=== PATIENT | male | born 1960 | race Two or more races ===

== ENCOUNTER 2017-08-30 12:36 | Observation (INO) | payer SELFPAY ==
[~2017-08-30] VITALS: Ht 167.6 cm; Wt 102.1 kg
[~2017-08-30 12:36] MED LIST: ASPIRIN500 MG PO; ATORVASTATIN CA20 MG PO; DIOVAN160 MG PO; FAMOTIDINE20 MG PO; FUROSEMIDE20 MG PO; ISOSORBIDE MONO30 M1 PO; METOPROLOL TART25 MG PO; PLAVIX75 MG PO; POTASSIUM CHLOR8 ME1 PO
[2017-08-30] MEDS ORDERED: HYDROMORPHONE 1MG/1ML INJ IV STA (12:44)
[2017-08-30] MEDS ORDERED: ONDANSETRON HCL INJ 2 MG/ML VIAL IV STA (12:44)
[2017-08-30] MEDS ORDERED: PLAVIX75 MG PO (13:31)
[2017-08-30] MEDS ORDERED: NITROGLYCERIN0.4 MG SL (13:31)
[2017-08-30] MEDS ORDERED: ASPIRIN325 MG PO (13:34)
[2017-08-30 13:35] LABS: BASOPHILS # (AUTO) 0.1 (0.0-0.1); BASOPHILS % 0.5 % (0.0-1.0); EOSINOPHILS % 0.3 % (0.0-6.0); HEMATOCRIT 46.1 % (38.2-49.6); HEMOGLOBIN 15.3 g/dL (14.0-18.0); LYMPHOCYTES # (AUTO) 1.2 (1.0-3.2); LYMPHOCYTES % 11.9 % (18.0-39.1); MEAN CORPUSCULAR HEMOGLOBIN 28.5 pg (28-32); MEAN CORPUSCULAR HGB CONC 33.2 g/dL (31-35); MONOCYTES # (AUTO) 0.6 (0.2-0.8); MONOCYTES % 5.6 % (4.4-11.3); NEUTROPHILS # (AUTO) 8.4 (2.1-6.9); NEUTROPHILS % 81.3 % (38.7-80.0); PLATELET COUNT 216 x10e3/uL (140-360); RED BLOOD COUNT 5.36 x10e6/uL (4.3-5.7); RED CELL DISTRIBUTION WIDTH 13.9 % (11.7-14.4)
--- NOTE | 2017-08-30 13:43 | Diagnostic Imaging Report ---
PROCEDURE: CHEST SINGLE (PORTABLE) COMPARISON: 09/10/2010. INDICATIONS: CHEST PAIN, SOB FINDINGS: The lungs are well-inflated. No focal consolidation, pleural effusion, or pneumothorax. Postsurgical changes of the mediastinum with borderline enlargement of the cardiac silhouette. No overt pulmonary edema. No acute osseous abnormality. CONCLUSION: Borderline cardiomegaly without vascular decompensation. Dictated by: Jose Miguel Chao M.D. on 08/30/2017 at 13:51 Electronically approved by: Jose Miguel Chao M.D. on 08/30/2017 at 13:51
[2017-08-30 13:51] LABS: INR 0.96; PARTIAL THROMBOPLASTIN TIME 28.3 seconds (23.8-35.5); PROTHROMBIN TIME 13.3 seconds (11.9-14.5)
[2017-08-30 13:58] LABS: ALANINE AMINOTRANSFERASE 26 IU/L (0-55); ALBUMIN/GLOBULIN RATIO 0.9 (0.8-2.0); ALKALINE PHOSPHATASE 73 IU/L (40-150); AMYLASE 42 U/L (25-125); ANION GAP 14.5 mmol/L (8-16); BLOOD UREA NITROGEN 13 mg/dL (7-26); BUN/CREATININE RATIO 13 (6-25); CALCIUM 9.3 mg/dL (8.4-10.2); CARBON DIOXIDE 25 mmol/L (22-29); CHLORIDE 105 mmol/L (98-107); CREATINE KINASE 67 IU/L (30-200); CREATININE, SERUM 0.99 mg/dL (0.72-1.25); EST GLOMERULAR FILTRATION RATE > 60 ML/MIN (60-); GLUCOSE 136 mg/dL (74-118); LIPASE 11 U/L (8-78); POTASSIUM 4.5 mmol/L (3.5-5.1); SODIUM 140 mmol/L (136-145)
[2017-08-30 14:05] LABS: TROPONIN I 0.172 ng/mL (0-0.300)
[2017-08-30] MEDS ORDERED: NITROGLYCERIN 2% OINT 1 GM PKT TOP ONE ×2 (14:15→17:45)
[2017-08-30] MEDS ORDERED: MORPHINE SULFATE 2 MG/ML SYR IV PRN (14:45)
[2017-08-30] MEDS ORDERED: SODIUM CHLORIDE FLUSH 10 ML SYR INJ PRN (14:45)
[2017-08-30] MEDS ORDERED: ONDANSETRON HCL INJ 2 MG/ML VIAL IV PRN (14:45)
[2017-08-30] MEDS ORDERED: PROPRANOLOL HCL 1 MG/ML VIAL INJ ONE ×2 (16:00→17:15)
[2017-08-30] MEDS ORDERED: NITROGLYCERIN 0.4 MG SUBL SL PRN (17:45)
[2017-08-30] MEDS: VALSARTAN 160 MG TAB PO SCH (18:06)
--- NOTE | 2017-08-30 18:31 | History and Physical ---
CLINICAL HISTORY: This is a 57-year-old Cristhian [place] Slov[place] gentleman seen in the emergency room at [facility] because of severe chest pains lasting for hours on and off since 10 p.m. yesterday. This patient is known to have severe coronary artery disease status post coronary artery bypass surgery followed by multiple coronary stents. He is known to have severe cardiomyopathy, ejection fraction in the range of 15%. We have discussed defibrillator implantation, but he has not agreed to it. He was last stented in September of this year when the circumflex stent was inserted, jailing the obtuse marginal artery. He is known to have 2 occluded vein grafts and a 3rd vein graft with 78% stenosis, but this vein graft supplied a small right coronary artery measuring 1.5 cm. Additionally, he has a patent internal mammary to the LAD, but in the distal portion of the LAD, the vessel was 2 mm and had a 60% to 70% stenosis. Heart transplant to be considered. PAST MEDICAL HISTORY: Is remarkable for the above conditions. He has had a previous myocardial infarction involving the circumflex coronary artery. There is history of hypertension, hiatal hernia, chronic right bundle branch block, left anterior hemiblock. There are also positional chest pains and pains radiating to the back. Past surgery included bypass surgery times 3 in 2004 with vein graft to the ramus artery and 2nd obtuse marginal artery, appendectomy, lumbar fusion, ganglion cyst. FAMILY HISTORY: Father had diabetes, coronary artery disease. ALLERGIES: TO VICODIN. REVIEW OF SYSTEMS: Negative. PHYSICAL EXAMINATION: VITAL SIGNS: Stable except for blood pressure 140/100. CARDIOVASCULAR: Jugular veins were not distended. S1 and S2 were regular. There are no appreciable murmurs. LUNGS: Clear. ABDOMEN: Soft. Bowel sounds are present. EXTREMITIES: Show no cyanosis, clubbing or edema. LABORATORY STUDIES: The electrolytes are normal. CK, CK-MB, troponin were all normal. The white count is 10,000, hemoglobin 15.3, platelet count 215,000. INR was 0.96. The chest x-ray showed borderline cardiomegaly. IMPRESSION: 1. Unstable angina pectoris. Rule out myocardial infarction, progression of coronary artery disease. 2. History of coronary artery bypass surgery, multiple stents, and previous posterior wall myocardial infarction. 3. Small coronary vessels. 4. Severe ischemic cardiomyopathy, ejection fraction in the range of 15%. 5. Hypertension. 6. Medication noncompliance. Apparently he has not been taking his Plavix nor his blood pressure medications. RECOMMENDATIONS: Rule out myocardial infarction. Repeat echocardiogram. Consider cardiac transplant. Consider cardiac catheterization. Job#: [id number]
[2017-08-30 21:00] VITALS: BP 138/81
[2017-08-30 22:12] LABS: CREATINE KINASE MB 4.7 ng/mL (0.00-5.00); TROPONIN I 0.369 ng/mL (0-0.300)
[2017-08-30] MEDS: PANTOPRAZOLE 40 MG 10ML VIAL IV SCH (23:11)
[2017-08-30] MEDS: MAGNESIUM/ALUMINUM/SIMETHICONE 30 ML UDC PO PRN (23:11)
[2017-08-30 23:49] VITALS: BP 133/74
[2017-08-31 01:50] VITALS: BP 133/74
[2017-08-31 04:00] VITALS: BP 108/60
[2017-08-31 07:11] LABS: CHOL/HDL RATIO 3.6 (3.9-4.7)
[2017-08-31 07:17] LABS: CREATINE KINASE MB 2.2 ng/mL (0.00-5.00); TROPONIN I 0.326 ng/mL (0-0.300)
[2017-08-31 08:06] VITALS: BP 112/66
[2017-08-31] MEDS: MAGNESIUM/ALUMINUM/SIMETHICONE 30 ML UDC PO PRN (08:58)
[2017-08-31] MEDS: VALSARTAN 160 MG TAB PO SCH (08:58)
[2017-08-31] MEDS ORDERED: CLOPIDOGREL BISULFATE 75 MG TAB PO SCH (09:00)
[2017-08-31] MEDS ORDERED: ASPIRIN 325 MG TAB PO SCH (09:00)
[2017-08-31] MEDS: PANTOPRAZOLE 40 MG 10ML VIAL IV SCH (11:25)
--- NOTE | 2017-08-31 17:50 | Cardiology Report ---
DATE OF STUDY: August 30, 2017 ECHOCARDIOGRAM M-MODE: Dilated left atrium, dilated left ventricle. Borderline left ventricular hypertrophy. Severely diminished left ventricular contractility. Normal mitral aortic valves. No pericardial effusion. SECTOR SCAN: Dilated left atrium, dilated left ventricle. Severely diminished left ventricular contractility. Estimated ejection fraction 15% to 20%. There is borderline left ventricular hypertrophy. Mitral aortic and tricuspid valves are grossly normal. No pericardial effusion. CARDIAC DOPPLER STUDY WITH COLOR: Trace mitral tricuspid regurgitation. CONCLUSIONS: 1. Borderline left ventricular hypertrophy with dilated left ventricle with severely diminished left ventricular contractility. Estimated ejection fraction 15% to 20%. 2. Trace mitral regurgitation with dilated left atrium. 3. Trace tricuspid regurgitation. Job#: [id number]
--- NOTE | 2017-08-31 19:33 | Discharge Summary ---
CLINICAL HISTORY: This is a 57-year-old Cristhian [place]ic Ethiopian man admitted via the emergency room because of severe chest pain. This lasted for approximately 12 hours. Please refer to my previous dictation concerning details of current illness, past medical history, personal and social history, family history, review of systems, physical examination, initial laboratory studies. HOSPITAL COURSE: The patient was treated with nitrates, as well as IV analgesics with symptomatic improvement. However, eventually we gave him omeprazole plus GI cocktail, his pain completely resolved. His troponin donna from 0.17 to 0.36, which was elevated. CK and CK-MB remained normal. Echocardiogram showed an ejection fraction in the range of 15% to 20%. He declined to have intervention and wants to go home for [place]. He may require transplant or AICD. He understands the risks. He had left the hospital before I could discharge him. DISCHARGE DIAGNOSES 1. Unstable angina pectoris, possible [id number] elevation myocardial infarction with the patient declining intervention or cardiac catheterization. 2. Ischemic cardiomyopathy. Ejection fraction 15% to 20%. 3. History of coronary artery bypass surgery and multiple stents. 4. History of previous posterior wall myocardial infarction. 5. Small coronary arteries. 6. Hypertension. 7. Medication noncompliance. Apparently, was not taking his Plavix or his blood pressure medications. JOSE SHIPLEY MD Job#: [id number] [place]
== END 2017-08-31 11:30 | disposition home or self-care (01) ==
LOC: ER 12:36 → ERHOLD 14:59 → MED/SURG 20:30
PROVIDERS: ADMIT Internal Medicine Cardiovascular Disease; ATTEND Internal Medicine Cardiovascular Disease
DX: I25.110 Atherosclerotic heart disease of native coronary artery with unstable angina pectoris (principal); I25.710 Atherosclerosis of autologous vein coronary artery bypass graft(s) with unstable angina pectoris; I25.5 Ischemic cardiomyopathy; I11.0 Hypertensive heart disease with heart failure; I50.9 Heart failure, unspecified; Z53.29 Procedure and treatment not carried out because of patient's decision for other reasons; Z91.14 Patient's other noncompliance with medication regimen; I25.2 Old myocardial infarction; Z95.5 Presence of coronary angioplasty implant and graft; Z79.02 Long term (current) use of antithrombotics/antiplatelets; Z79.82 Long term (current) use of aspirin; Z88.5 Allergy status to narcotic agent
CPT/HCPCS: 36415 ×2; 71010; 80053; 80061; 82150; 82550 ×2; 82553 ×2; 83690; 84484 ×2; 85025; 85610; 85730; 93005; 93306; 96375; 99284; G0378 ×2; J1170; J1800; J2270; J2405

== ENCOUNTER → 2019-01-06 | Day surgery (SDC) | payer OTHER ==
[2019-01-05 14:45] LABS: BASOPHILS # (AUTO) 0.1 (0.0-0.1); BASOPHILS % 0.9 % (0.0-1.0); EOSINOPHILS # (AUTO) 0.4 (0.0-0.4); EOSINOPHILS % 5.5 % (0.0-6.0); HEMATOCRIT 44.7 % (38.2-49.6); HEMOGLOBIN 13.8 g/dL (14.0-18.0); LYMPHOCYTES # (AUTO) 1.9 (1.0-3.2); LYMPHOCYTES % 28.9 % (18.0-39.1); MEAN CORPUSCULAR HEMOGLOBIN 26.8 pg (28-32); MEAN CORPUSCULAR HGB CONC 30.9 g/dL (31-35); MONOCYTES # (AUTO) 0.8 (0.2-0.8); MONOCYTES % 11.6 % (4.4-11.3); NEUTROPHILS # (AUTO) 3.5 (2.1-6.9); NEUTROPHILS % 52.9 % (38.7-80.0); PLATELET COUNT 202 x10e3/uL (140-360); RED BLOOD COUNT 5.14 x10e6/uL (4.3-5.7); RED CELL DISTRIBUTION WIDTH 14.4 % (11.7-14.4)
[~2019-01-06] MED LIST changes: +ASPIRIN325 MG PO; +CARVEDILOL12.5 MG PO; +FENTANYL CITRATE/PF 100MCG/2 ML INJ ONE; +LIDOCAINE HCL 2% LOCAL INJ 5 ML SDV VIAL INJ ONE; +LOSARTAN POTASS25 MG; +MIDAZOLAM HCL 2 MG/2 ML VIAL ONE; +NITROGLYCERIN0.4 MG SL; +POTASSIUM CHLO20 ME1; +PROPOFOL IV EMULSION 10 MG/ML 50 ML VIAL ONE; +RANEXA500 MG PO
--- OUTSIDE RECORDS SUMMARY | 2019-01-06 05:35 | XMS REPORT | Clinical Summary ---
Author Author RAFAT [facility] Address Unknown Phone Unavailable Care Team Providers Care Body Team Member Name Role Phone Jacob Gutiérrez PCP Allergies Comments Active Allergy Reactions Severity Noted Date Pt has visual and auditory hallucintations Hydrocodone-Acetaminophen 02/10/2018 Medications End Date Status Medication Sig Dispensed Refills Start Date Active losartan (COZAAR) 50 MG Take 50 mg by 0 tablet mouth daily. Active ranolazine (RANEXA) 500 Take 500 mg 0 MG 12 hr tablet by mouth 2 (two) times daily. Active clopidogrel (PLAVIX) 75 Take 75 mg by 0 mg tablet mouth daily. Active nitroglycerin Place 1 spray 0 (NITROLINGUAL) 400 under the mcg/spray spray tongue every 5 (five) minutes as needed for Chest pain. Active furosemide (LASIX) 20 MG Take 20 mg by 0 tablet mouth as needed. Active aspirin 81 MG EC tablet Take 81 mg by 0 mouth daily. Active carvedilol (COREG) 3.125 Take 3.125 mg 0 MG tablet by mouth 2 (two) times daily with breakfast and dinner. 02/10/2018 Discontinued clopidogrel (PLAVIX) 300 Take 300 mg 0 mg Tab by mouth once. 11/26/2018 Discontinued mINOCYCLine Take 1 10 capsule 0 (MINOCIN,DYNACIN) 100 MG capsule (100 9 capsule mg total) by mouth every 12 (twelve) hours for 5 days. 12/01/2018 mINOCYCLine Take 1 10 capsule 0 (MINOCIN,DYNACIN) 100 MG capsule (100 9 capsule mg total) by mouth every 12 (twelve) hours for 5 days. Active Problems Problem Noted Date Ischemic cardiomyopathy 11/25/2018 Shortness of breath 02/10/2018 Chest pain 02/10/2018 Encounters Care Team Description Date Type Specialty Neo Stephens MD Athscl heart disease of [place] cor art w oth ang pctrs (HCC) (Primary Dx); Essential hypertension, malignant 12/06/2018 Orders Only Randall Lang MD 11/25/2018 Anesthesia Event Carlos Haywood MD AICD GENERATOR & LEADS - INSERTION W/ GENERAL ANESTHESIA (SING/DUAL/MULT) 11/25/2018 Surgery Carlos Haywood MD 11/25/2018 Hospital Cardiology - Encounter 11/26/2018 11/25/2018 Travel 11/25/2018 Orders Only General Internal Medicine Jacob Gutiérrez Atherosclerosis of [place] coronary artery of [place] heart without angina pectoris (Primary Dx); Ischemic cardiomyopathy; Essential hypertension, malignant 11/08/2018 Orders Only Neo Davison MD Atherosclerosis of [place] coronary artery without angina pectoris, unspecified whether [place] or transplanted heart (Primary Dx); Ischemic cardiomyopathy; Essential hypertension, malignant 11/01/2018 Orders Only Neo Davison MD Coronary artery disease involving [place] coronary artery of [place] heart without angina pectoris; Cardiomyopathy, unspecified type (HCC); Essential hypertension 11/01/2018 Hospital Encounter Neo Stephens MD Coronary artery disease involving [place] coronary artery of [place] heart without angina pectoris (Primary Dx); Cardiomyopathy, unspecified type (HCC); Essential hypertension; Atherosclerosis of [place] coronary artery without angina pectoris, unspecified whether [place] or transplanted heart; Ischemic cardiomyopathy; Essential hypertension, malignant 11/01/2018 Outside Orders Sammy Quintero MD L CATH & CORONARY ANGIOS 02/10/2018 Surgery Sammy Quintero MD 02/10/2018 Hospital Encounter after 01/05/2018 Social History Date Tobacco Use Types Packs/Day Years Used Never Smoker Smokeless Tobacco: Never Used Alcohol Use Drinks/Week oz/Week Comments No Sex Assigned at Date Recorded Not on file Industry Job Start Date Occupation Not on file Not on file Not on file Travel End Travel History Travel Start No recent travel history available. Last Filed Vital Signs Time Taken Vital Sign Reading 11/26/2018 7:51 AM CDT Blood Pressure 158/101 11/26/2018 7:51 AM CDT Pulse 89 11/26/2018 7:51 AM CDT Temperature 36.5 C (97.7 F) 11/26/2018 7:51 AM CDT Respiratory Rate 18 11/26/2018 7:51 AM CDT Oxygen Saturation 98% - Inhaled Oxygen - Concentration 11/26/2018 7:51 AM CDT Weight 100.5 kg (221 lb 8 oz) 11/25/2018 8:19 AM CDT Height 167.6 cm (5' 6") 11/26/2018 7:51 AM CDT Body Mass Index 35.75 Plan of Treatment Not on file Implants Device Identifier Shelf Expiration Date Model / Serial / Lot Implanted Type Area Manufactur er 08/22/2020 [id number] - 62CM / [id number] / Rv Lead 6935m - 62 Cm Right: Heart [employer] Implanted: Qty: 1 on 11/25/2018 by Carlos Haywood MD 09/20/2020 [id number] - 45 CM / [id number] / Ra Lead 5076 - 45cm Right: Heart [employer] Implanted: Qty: 1 on 11/25/2018 by Carlos Haywood MD 06/30/2020 [id number] - 78 CM / [id number] / Lv Lead 4298 - 78 Cm Heart [employer] Implanted: Qty: 1 on 11/25/2018 by Carlos Haywood MD 03/26/2020 [id number] / [id number] / [employer] Teacher-D Surescan Left: Chest [employer] Implanted: Qty: 1 on 11/25/2018 by Carlos Siu MD Procedures Comments Procedure Name Priority Date/Time Associated Diagnosis ARRYTHMIA IMPLANT REPORT 12/22/2018 - SCAN 2:22 PM CDT RHYTHM STRIP - SCAN 12/12/2018 10:41 AM CDT BASIC METABOLIC PANEL (7) Routine 12/06/2018 Athscl heart disease of 10:52 AM CDT [place] cor art w oth ang pctrs (HCC) Essential hypertension, malignant B-TYPE NATRIURETIC FACTOR Routine 12/06/2018 Athscl heart disease of (BNP) 10:52 AM CDT [place] cor art w oth ang pctrs (HCC) Essential hypertension, malignant REPORT OF PROCEDURE - 11/29/2018 ENDOSCOPY SCAN 1:12 PM CDT RHYTHM STRIP - SCAN 11/29/2018 1:12 PM CDT ARRYTHMIA IMPLANT REPORT 11/29/2018 - SCAN 1:12 PM CDT CARDIAC CATH REPORT - 11/29/2018 SCAN 1:12 PM CDT TRANSFUSION SERVICE 11/26/2018 REPORT - SCAN 5:51 PM CDT ELECTROLYTE PANEL Routine 11/26/2018 4:25 AM CDT CBC (HEMOGRAM ONLY) Routine 11/26/2018 4:25 AM CDT XR CHEST 1 VIEW Routine 11/25/2018 PORTABLE/BEDSIDE 6:43 PM CDT AICD GENERATOR & LEADS - 11/25/2018 Ischemic cardiomyopathy INSERTION W/ GENERAL 11:35 AM CDT Cardiomyopathy, ANESTHESIA unspecified type (HCC) (SING/DUAL/MULT) Case Notes (2) CASE POP6 ECG 12-LEAD Routine 11/25/2018 9:55 AM CDT Procedure Note - Interface, External Ris In - 11/25/2018 9:55 AM CDT Ventricula r Rate 81 BPM Atrial Rate 81 BPM P-R Interval 184 ms QRS Duration 156 ms Q-T Interval 428 ms QTC Calculatio n(Bazett) 497 ms P Headrick 85 degrees R Headrick -67 degrees T Headrick -58 degrees Normal sinus rhythm Left axis deviation Right bundle branch block Septal infarct (cited on or before 9) T wave abnormalit y, consider inferior ischemia Abnormal ECG When compared with ECG of 5 03:47, QRS duration has increased Serial changes of Septal infarct Present ECG 12-LEAD Routine 11/25/2018 9:55 AM CDT CBC W/PLT COUNT & AUTO STAT 11/25/2018 DIFFERENTIAL 9:35 AM CDT TYPE AND SCREEN, STAT 11/25/2018 AUTOMATED 9:35 AM CDT PROTHROMBIN TIME/INR STAT 11/25/2018 9:35 AM CDT MAGNESIUM STAT 11/25/2018 9:35 AM CDT CBC W/PLT COUNT & AUTO STAT 11/25/2018 DIFFERENTIAL 9:35 AM CDT BASIC METABOLIC PANEL (7) STAT 11/25/2018 9:35 AM CDT BASIC METABOLIC PANEL (7) Routine 11/08/2018 Atherosclerosis of [place] 2:58 PM TRADE RECRUITER coronary artery of [place] heart without angina pectoris Ischemic cardiomyopathy Essential hypertension, malignant B-TYPE NATRIURETIC FACTOR Routine 11/08/2018 Atherosclerosis of [place] (BNP) 2:58 PM TRADE RECRUITER coronary artery of [place] heart without angina pectoris Ischemic cardiomyopathy Essential hypertension, malignant B-TYPE NATRIURETIC FACTOR Routine 11/01/2018 Atherosclerosis of [place] (BNP) 4:51 PM TRADE RECRUITER coronary artery without angina pectoris, unspecified whether [place] or transplanted heart Ischemic cardiomyopathy Essential hypertension, malignant BASIC METABOLIC PANEL (7) Routine 11/01/2018 Atherosclerosis of [place] 4:51 PM TRADE RECRUITER coronary artery without angina pectoris, unspecified whether [place] or transplanted heart Ischemic cardiomyopathy Essential hypertension, malignant XR CHEST 2 VIEWS Routine 11/01/2018 Coronary artery disease 4:44 PM TRADE RECRUITER involving [place] coronary artery of [place] heart without angina pectoris Cardiomyopathy, unspecified type (HCC) Essential hypertension VASCULAR DIAGRAM -SCAN 05/20/2018 10:50 AM CDT CARDIAC CATH REPORT - 02/14/2018 SCAN 8:40 AM CDT REPORT OF PROCEDURE - 02/11/2018 ENDOSCOPY SCAN 12:30 PM CDT VASCULAR DIAGRAM -SCAN 02/11/2018 12:30 PM CDT L CATH & CORONARY ANGIOS 02/10/2018 Coronary artery disease 7:35 AM CDT involving [place] coronary artery of [place] heart without angina pectoris Acute angina (HCC) Case Notes (2) CASE POP6 l cath poss after 01/05/2018 Results * ARRYTHMIA IMPLANT REPORT - SCAN (12/22/2018 2:22 PM CDT) Only the most recent of 2 results within the time period is included. Narrative Performed At * RHYTHM STRIP - SCAN (12/12/2018 10:41 AM CDT) Only the most recent of 2 results within the time period is included. Narrative Performed At * B-type Natriuretic Factor (BNP) (12/06/2018 10:52 AM CDT) Only the most recent of 3 results within the time period is included. BNP 267 (H) 0 - 100 pg/mL [facility] Specimen Blood Performing Organization Address City/[facility]/Zipcode Phone Number [facility] [address] [place] [address] [facility] * Basic Metabolic Panel (12/06/2018 10:52 AM CDT) Only the most recent of 4 results within the time period is included. Sodium 139 136 - 145 meq/L [facility] Potassium 4.4Comment: Specimen slightly 3.5 - 5.1 meq/L [facility] Chloride 107 98 - 107 meq/L [facility] CO2 26 22 - 29 meq/L [facility] BUN 8 7 - 21 mg/dL [facility] Creatinine 0.86Comment: Specimen slightly 0.57 - 1.25 mg/dL [facility] Glucose 94 70 - 105 mg/dL [facility] Calcium 10.0 8.4 - 10.2 mg/dL [facility] EGFR 91Comment: ESTIMATED GFR IS mL/min/1.73 sq m [facility] NOT ACCURATE CREATININE [facility] CLEARANCE IN PREDICTING GLOMERULAR FILTRATION RATE. ESTIMATED GFR IS NOT APPLICABLE FOR DIALYSIS PATIENTS. Specimen Blood Performing Organization Address City/State/Zipcode Phone Number [facility] [address] [place] [address] [facility] * EKG-SCANNED (11/29/2018 1:12 PM CDT) Only the most recent of 2 results within the time period is included. Narrative Performed At * CARDIAC CATH REPORT - SCAN (11/29/2018 1:12 PM CDT) Narrative Performed At * TRANSFUSION SERVICE REPORT - SCAN (11/26/2018 5:51 PM CDT) Narrative Performed At * CBC (Hemogram only) (11/26/2018 4:25 AM CDT) WBC 8.0 3.5 - 10.5 K/L [facility] RBC 5.42 4.63 - 6.08 M/L [facility] Hemoglobin 15.0 13.7 - 17.5 GM/DL [facility] Hematocrit 47.4 40.1 - 51.0 % [facility] MCV 87.5 79.0 - 92.2 fL [facility] MCH 27.7 25.7 - 32.2 pg [facility] MCHC 31.6 (L) 32.3 - 36.5 GM/DL [facility] RDW 14.2 11.6 - 14.4 % [facility] Platelets 220 150 - 450 K/CU MM [facility] MPV 10.7 9.4 - 12.4 fL [facility] nRBC 0 0 - 0 /100 WBC [facility] Specimen Blood Performing Organization Address City/State/Zipcode Phone Number [address] [address] [phone] [place] [address] * Electrolytes (11/26/2018 4:25 AM CDT) Sodium 138 136 - 145 meq/L [facility] Potassium 4.4 3.5 - 5.1 meq/L [facility] Chloride 107 98 - 107 meq/L [facility] CO2 23 22 - 29 meq/L [facility] Specimen Blood Performing Organization Address City/[facility]/Zipcode Phone Number [address] [address] [facility] * XR chest 1 view portable / bedside (11/25/2018 6:43 PM CDT) Specimen Narrative Performed At FINAL REPORT [facility] Portable chest. CLINICAL HISTORY: ICD placement. COMPARISON STUDY: November 01, 2018. FINDINGS: The cardiac silhouette is enlarged. Sternotomy wires are seen. The pulmonary parenchyma demonstrate interstitial markings with atelectatic changes. There has been interval pacer insertion. No pneumothorax is seen. Degenerative changes are noted. IMPRESSION: Interval pacer insertion. No pneumothorax. Signed: Tera Girmes MD Report Verified Date/Time:11/25/2018 19:23:22 Reading Location: [facility] C013 Consult Reading Room Procedure Note Interface, External Ris In - 11/25/2018 7:25 PM CDT FINAL REPORT Portable chest. CLINICAL HISTORY: ICD placement. COMPARISON STUDY: November 01, 2018. FINDINGS: The cardiac silhouette is enlarged. Sternotomy wires are seen. The pulmonary parenchyma demonstrate interstitial markings with atelectatic changes. There has been interval pacer insertion. No pneumothorax is seen. Degenerative changes are noted. IMPRESSION: Interval pacer insertion. No pneumothorax. Signed: Tera Grimes MD Report Verified Date/Time: 11/25/2018 19:23:22 Reading Location: [facility] C013 Consult Reading Room Performing Organization Address City/State/Zipcode Phone Number GE RIS * ECG 12 lead (11/25/2018 9:55 AM CDT) Specimen Narrative Performed At Ventricular Rate 81 BPM GE MUSE Atrial Rate 81 BPM P-R Interval 184 ms QRS Duration 156 ms Q-T Interval 428 ms QTC Calculation(Bazett) 497 ms P Headrick 85 degrees R Headrick -67 degrees T Headrick -58 degrees Normal sinus rhythm Left axis deviation Right bundle branch block Cannot exclude old anterolateral infarct(cited on or before 25-NOV-2018) ST depression inferolateral leads + ST elevation in aVR consider subendocardial ischemia Prolonged QT Abnormal ECG When compared with ECG of 31-AUG-2005 03:47, QRS duration has increased QRS axis has shifted from right Old anterolateral infarct now suspected ST depression replaced mild ST elevation inferior elads QT has lengthened Confirmed by MD SALO, RUBEN ([id number]) on 11/26/2018 5:05:09 AM Procedure Note Interface, External Ris In - 11/26/2018 5:05 AM CDT Ventricular Rate 81 BPM Atrial Rate 81 BPM P-R Interval 184 ms QRS Duration 156 ms Q-T Interval 428 ms QTC Calculation(Bazett) 497 ms P Headrick 85 degrees R Headrick -67 degrees T Headrick -58 degrees Normal sinus rhythm Left axis deviation Right bundle branch block Cannot exclude old anterolateral infarct (cited on or before 25-NOV-2018) ST depression inferolateral leads + ST elevation in aVR consider subendocardial ischemia Prolonged QT Abnormal ECG When compared with ECG of 31-AUG-2005 03:47, QRS duration has increased QRS axis has shifted from right Old anterolateral infarct now suspected ST depression replaced mild ST elevation inferior elads QT has lengthened Confirmed by MD SALO, RUBEN ([id number]) on 11/26/2018 5:05:09 AM Performing Organization Address City/[facility]/Zipcode Phone Number MUSE * Type and screen, automated (11/25/2018 9:35 AM CDT) ABO/RH AUTOMATED (BEAKER) O POSITIVE [facility] Ab Scrn NEGATIVE [facility] Specimen Blood Performing Organization Address City/[facility]/Zipcode Phone Number [facility] [address] [place] [address] [facility] * CBC with platelet count + automated diff (11/25/2018 9:35 AM CDT) WBC 6.4 3.5 - 10.5 K/L [facility] RBC 5.09 4.63 - 6.08 M/L [facility] Hemoglobin 13.9 13.7 - 17.5 GM/DL [facility] Hematocrit 44.5 40.1 - 51.0 % [facility] MCV 87.4 79.0 - 92.2 fL [facility] MCH 27.3 25.7 - 32.2 pg [facility] MCHC 31.2 (L) 32.3 - 36.5 GM/DL [facility] RDW 14.1 11.6 - 14.4 % [facility] Platelets 223 150 - 450 K/CU MM [facility] MPV 10.4 9.4 - 12.4 fL [facility] nRBC 0 0 - 0 /100 WBC [facility] % Neutros 54 % [facility] % Lymphs 31 % [facility] % Monos 9 % [facility] % Eos 5 % [facility] % Baso 1 % [facility] # Neutros 3.45 1.78 - 5.38 K/L [facility] # Lymphs 2.00 1.32 - 3.57 K/L [facility] # Monos 0.54 0.30 - 0.82 K/L [facility] # Eos 0.33 0.04 - 0.54 K/L [facility] # Baso 0.04 0.01 - 0.08 K/L [facility] Immature 0 0 - 1 % [facility] Granulocytes-Relative [facility] Specimen Blood Performing Organization Address City/State/Zipcode Phone Number [facility] [address] [place] [address] [facility] * Prothrombin time/INR (11/25/2018 9:35 AM CDT) Protime 14.6 11.7 - 14.7 seconds [facility] INR 1.1 <=5.9 [facility] Specimen Blood Narrative Performed At RECOMMENDED COUMADIN/WARFARIN INR THERAPY RANGES [facility] STANDARD DOSE: 2.0 - 3.0 Includes: PROPHYLAXIS for venous thrombosis, [facility] systemic embolization; TREATMENT for venous thrombosis and/or pulmonary embolus. HIGH RISK: Target INR is 2.5-3.5 for patients with mechanical heart valves. Within 24 hours, if on Coumadin Performing Organization Address City/State/Zipcode Phone Number [facility] [address] [place] [address] [facility] * Magnesium (11/25/2018 9:35 AM CDT) Magnesium 2.2 1.6 - 2.6 mg/dL [facility] Specimen Blood Performing Organization Address [facility] Phone Number [facility] [address] [place], [place] [id number] [facility] * XR Chest 2 Views (11/01/2018 4:44 PM TRADE RECRUITER) Specimen Narrative Performed At FINAL REPORT [facility] History: Coronary artery disease, ischemic cardiomyopathy, hypertension Comparison: 08/31/2005 Findings: The lungs are clear. No pleural effusions or pneumothorax. The heart shadow is mildly enlarged. Sternotomy wires are present. The thoracic aorta is mildly calcified. Degenerative and hypertrophic changes are present in the spine. There are degenerative changes in the acromioclavicular joints. Impression: No evidence of acute cardiopulmonary disease. Signed: Darryl Abreu MD Report Verified Date/Time:11/01/2018 16:56:03 Reading Location: [facility] Radiology Reading Room Procedure Note Interface, External Ris In - 11/01/2018 4:58 PM TRADE RECRUITER FINAL REPORT History: Coronary artery disease, ischemic cardiomyopathy, hypertension Comparison: 08/31/2005 Findings: The lungs are clear. No pleural effusions or pneumothorax. The heart shadow is mildly enlarged. Sternotomy wires are present. The thoracic aorta is mildly calcified. Degenerative and hypertrophic changes are present in the spine. There are degenerative changes in the acromioclavicular joints. Impression: No evidence of acute cardiopulmonary disease. Signed: Darryl Abreu MD Report Verified Date/Time: 11/01/2018 16:56:03 Reading Location: [facility] Radiology Reading Room Performing Organization Address [facility]/Zipcode Phone Number [facility] * VASCULAR DIAGRAM -SCAN (05/20/2018 10:50 AM CDT) Only the most recent of 2 results within the time period is included. Narrative Performed At * CARDIAC CATH REPORT - SCAN (02/14/2018 8:40 AM CDT) Narrative Performed At after 01/05/2018 Insurance Payer Benefit Subscriber ID Type Phone Address Plan / Group OLEKSANDR LEGGETT xxxxxxxxxxx SUPERIOR Advance Directives For more information, please contact: [facility] [address] [place] [address] Date Inactivated Comments Code Status Date Activated 11/26/2018 2:02 PM Full Code 11/25/2018 5:15 PM This code status was determined by: Patient 11/25/2018 5:15 PM Full Code 11/25/2018 8:33 AM This code status was determined by: Patient 02/10/2018 3:46 PM Full Code 02/10/2018 6:06 AM This code status was determined by: Patient
--- OUTSIDE RECORDS SUMMARY | 2019-01-06 05:35 | XMS REPORT ---
[facility] Address Unknown Phone Unavailable Care Team Providers Care Supervisor Harvesting Name Role Phone EDDI MORALES Unavailable Unavailable LIAN YEH Unavailable Unavailable Liza EVANS Unavailable Unavailable Daphnie SHIPLEY Unavailable Unavailable Payers Payer Name Policy Type Policy Number Effective Date Expiration Date Problems This patient has no known problems. Allergies, Adverse Reactions, Alerts Allergy Name Allergy Type Status Severity Reaction(s) Onset Date Inactive Date Treating Clinician Comments hydrocodone DA Active [place] 2017-08-30 00:00:00 Medications This patient has no known medications. Results Test Description Test Time Test Comments Text Results Atomic Results Result Comments B-TYPE NATRIURETIC FACTOR (BNP) 2018-12-06 11:21:00 B-TYPE NATRIURETIC PEPTIDE (BEAKER) (test egfc=578) 267 pg/mL 0-100 BASIC METABOLIC [id number] 11:13:00* Test Item Value Reference Range Comments SODIUM (BEAKER) (test bjnq=310) 139 meq/L 136-145 POTASSIUM (BEAKER) (test kpux=194) 4.4 meq/L 3.5-5.1 Specimen slightly hemolyzed CHLORIDE (BEAKER) (test wyag=686) 107 meq/L 98-107 CO2 (BEAKER) (test ziph=043) 26 meq/L 22-29 BLOOD UREA NITROGEN (BEAKER) (test sxyk=555) 8 mg/dL 7-21 CREATININE (BEAKER) (test gefx=450) 0.86 mg/dL 0.57-1.25 Specimen slightly hemolyzed GLUCOSE RANDOM (BEAKER) (test yjrj=430) 94 mg/dL 70-105 CALCIUM (BEAKER) (test mxmy=669) 10.0 mg/dL 8.4-10.2 EGFR (BEAKER) (test pzxx=3909) 91 mL/min/1.73 sq m ESTIMATED GFR IS NOT ACCURATE CREATININE CLEARANCE IN PREDICTING GLOMERULAR FILTRATION RATE. ESTIMATED GFR IS NOT APPLICABLE FOR DIALYSIS PATIENTS. [id number] 05:29:00* Test Item Value Reference Range Comments SODIUM (BEAKER) (test fhlv=330) 138 meq/L 136-145 POTASSIUM (BEAKER) (test swff=870) 4.4 meq/L 3.5-5.1 CHLORIDE (BEAKER) (test fyax=499) 107 meq/L 98-107 CO2 (BEAKER) (test idie=931) 23 meq/L 22-29 CBC (HEMOGRAM ONLY)2018-11-26 05:02:00* Test Item Value Reference Range Comments WHITE BLOOD CELL COUNT (BEAKER) (test xkjx=836) 8.0 K/ L 3.5-10.5 RED BLOOD CELL COUNT (BEAKER) (test sfxv=652) 5.42 M/ L 4.63-6.08 HEMOGLOBIN (BEAKER) (test dwbq=306) 15.0 GM/DL 13.7-17.5 HEMATOCRIT (BEAKER) (test vwwm=744) 47.4 % 40.1-51.0 MEAN CORPUSCULAR VOLUME (BEAKER) (test kfqu=335) 87.5 fL 79.0-92.2 MEAN CORPUSCULAR HEMOGLOBIN (BEAKER) (test zyar=695) 27.7 pg 25.7-32.2 MEAN CORPUSCULAR HEMOGLOBIN CONC (BEAKER) (test jfot=754) 31.6 GM/DL 32.3-36.5 RED CELL DISTRIBUTION WIDTH (BEAKER) (test ioav=164) 14.2 % 11.6-14.4 PLATELET COUNT (BEAKER) (test nfmq=635) 220 K/CU MM 150-450 MEAN PLATELET VOLUME (BEAKER) (test wdmj=025) 10.7 fL 9.4-12.4 NUCLEATED RED BLOOD CELLS (BEAKER) (test ztsx=292) 0 /100 WBC 0-0 RAD, CHEST, 1 VIEW, NON [id number] 19:23:00Reason for exam:->ICD placementShould this be performed at the bedside?->YesFINAL REPORT Portable chest. CLINICAL HISTORY: ICD placement. COMPARISON STUDY: November 01, 2018. FINDINGS: The cardiac silhouette is enlarged. Sternotomy wires are seen. The pulmonary parenchyma demonstrate interstitial markings with atelectatic changes. There has been interval pacer insertion. No pneumothorax is seen. Degenerative changes are noted. IMPRESSION: Interval pacer insertion. No pneumothorax. Signed: Tera Grimes MDReport Verified Date/Time: 11/25/2018 19:23:22 Reading Location: [facility] [id number] Consult Reading Room [id number] 10:04:00* Test Item Value Reference Range Comments MAGNESIUM (BEAKER) (test ckui=509) 2.2 mg/dL 1.6-2.6 BASIC METABOLIC [id number] 10:04:00* Test Item Value Reference Range Comments SODIUM (BEAKER) (test xjlk=065) 140 meq/L 136-145 POTASSIUM (BEAKER) (test yonj=858) 4.4 meq/L 3.5-5.1 CHLORIDE (BEAKER) (test ccvz=251) 106 meq/L 98-107 CO2 (BEAKER) (test xcoq=516) 28 meq/L 22-29 BLOOD UREA NITROGEN (BEAKER) (test iqsv=162) 8 mg/dL 7-21 CREATININE (BEAKER) (test vnjc=564) 0.86 mg/dL 0.57-1.25 GLUCOSE RANDOM (BEAKER) (test qcrq=290) 98 mg/dL 70-105 CALCIUM (BEAKER) (test xspf=098) 9.2 mg/dL 8.4-10.2 EGFR (BEAKER) (test kjny=6691) 91 mL/min/1.73 sq m ESTIMATED GFR IS NOT ACCURATE CREATININE CLEARANCE IN PREDICTING GLOMERULAR FILTRATION RATE. ESTIMATED GFR IS NOT APPLICABLE FOR DIALYSIS PATIENTS. PROTHROMBIN TIME/[id number] 10:00:00* Test Item Value Reference Range Comments PROTIME (BEAKER) (test gfna=249) 14.6 seconds 11.7-14.7 INR (BEAKER) (test ujid=752) 1.1 <=5.9 RECOMMENDED COUMADIN/WARFARIN INR THERAPY RANGESSTANDARD DOSE: 2.0 - 3.0 Inclu nicole: PROPHYLAXIS for venous thrombosis, systemic embolization; TREATMENT for gage ous thrombosis and/or pulmonary embolus.HIGH RISK: Target INR is 2.5-3.5 for pat ients with mechanical heart valves.Within 24 hours, if on CoumadinCBC W/PLT COUNT & AUTO [id number] 09:45:00* Test Item Value Reference Range Comments WHITE BLOOD CELL COUNT (BEAKER) (test qeog=937) 6.4 K/ L 3.5-10.5 RED BLOOD CELL COUNT (BEAKER) (test jokz=703) 5.09 M/ L 4.63-6.08 HEMOGLOBIN (BEAKER) (test cpop=514) 13.9 GM/DL 13.7-17.5 HEMATOCRIT (BEAKER) (test hdtw=624) 44.5 % 40.1-51.0 MEAN CORPUSCULAR VOLUME (BEAKER) (test mxaz=753) 87.4 fL 79.0-92.2 MEAN CORPUSCULAR HEMOGLOBIN (BEAKER) (test xbwn=686) 27.3 pg 25.7-32.2 MEAN CORPUSCULAR HEMOGLOBIN CONC (BEAKER) (test lkcm=536) 31.2 GM/DL 32.3-36.5 RED CELL DISTRIBUTION WIDTH (BEAKER) (test mwdw=552) 14.1 % 11.6-14.4 PLATELET COUNT (BEAKER) (test sbze=392) 223 K/CU MM 150-450 MEAN PLATELET VOLUME (BEAKER) (test nmee=324) 10.4 fL 9.4-12.4 NUCLEATED RED BLOOD CELLS (BEAKER) (test veji=921) 0 /100 WBC 0-0 NEUTROPHILS RELATIVE PERCENT (BEAKER) (test iboz=641) 54 % LYMPHOCYTES RELATIVE PERCENT (BEAKER) (test csch=049) 31 % MONOCYTES RELATIVE PERCENT (BEAKER) (test lzxp=076) 9 % EOSINOPHILS RELATIVE PERCENT (BEAKER) (test lsyb=986) 5 % BASOPHILS RELATIVE PERCENT (BEAKER) (test gowf=624) 1 % NEUTROPHILS ABSOLUTE COUNT (BEAKER) (test oykm=435) 3.45 K/ L 1.78-5.38 LYMPHOCYTES ABSOLUTE COUNT (BEAKER) (test eryv=801) 2.00 K/ L 1.32-3.57 MONOCYTES ABSOLUTE COUNT (BEAKER) (test duks=297) 0.54 K/ L 0.30-0.82 EOSINOPHILS ABSOLUTE COUNT (BEAKER) (test pjlm=686) 0.33 K/ L 0.04-0.54 BASOPHILS ABSOLUTE COUNT (BEAKER) (test cdzk=643) 0.04 K/ L 0.01-0.08 IMMATURE GRANULOCYTES-RELATIVE PERCENT (BEAKER) (test uqkx=7551) 0 % 0-1 B-TYPE NATRIURETIC FACTOR (BNP)2018-11-08 16:46:00* Test Item Value Reference Range Comments B-TYPE NATRIURETIC PEPTIDE (BEAKER) (test yamj=883) 348 pg/mL 0-100 BASIC METABOLIC [id number] 16:37:00* Test Item Value Reference Range Comments SODIUM (BEAKER) (test ylti=205) 142 meq/L 136-145 POTASSIUM (BEAKER) (test lhoh=131) 5.1 meq/L 3.5-5.1 CHLORIDE (BEAKER) (test unul=926) 105 meq/L 98-107 CO2 (BEAKER) (test wrqe=160) 29 meq/L 22-29 BLOOD UREA NITROGEN (BEAKER) (test asrp=508) 10 mg/dL 7-21 CREATININE (BEAKER) (test pdde=443) 0.89 mg/dL 0.57-1.25 GLUCOSE RANDOM (BEAKER) (test fejw=029) 102 mg/dL 70-105 CALCIUM (BEAKER) (test tdhg=425) 9.7 mg/dL 8.4-10.2 EGFR (BEAKER) (test yzkw=8976) 87 mL/min/1.73 sq m ESTIMATED GFR IS NOT ACCURATE CREATININE CLEARANCE IN PREDICTING GLOMERULAR FILTRATION RATE. ESTIMATED GFR IS NOT APPLICABLE FOR DIALYSIS PATIENTS. B-TYPE NATRIURETIC FACTOR (BNP)2018-11-01 17:26:00* Test Item Value Reference Range Comments B-TYPE NATRIURETIC PEPTIDE (BEAKER) (test kgos=283) 294 pg/mL 0-100 BASIC METABOLIC [id number] 17:18:00* Test Item Value Reference Range Comments SODIUM (BEAKER) (test pqom=848) 141 meq/L 136-145 POTASSIUM (BEAKER) (test goix=165) 5.5 meq/L 3.5-5.1 Specimen slightly hemolyzed CHLORIDE (BEAKER) (test opbc=286) 105 meq/L 98-107 CO2 (BEAKER) (test miqb=831) 32 meq/L 22-29 BLOOD UREA NITROGEN (BEAKER) (test dxuv=704) 10 mg/dL 7-21 CREATININE (BEAKER) (test gwmm=398) 0.89 mg/dL 0.57-1.25 Specimen slightly hemolyzed GLUCOSE RANDOM (BEAKER) (test oswy=063) 97 mg/dL 70-105 CALCIUM (BEAKER) (test evgh=508) 9.5 mg/dL 8.4-10.2 EGFR (BEAKER) (test zyuu=8989) 87 mL/min/1.73 sq m ESTIMATED GFR IS NOT ACCURATE CREATININE CLEARANCE IN PREDICTING GLOMERULAR FILTRATION RATE. ESTIMATED GFR IS NOT APPLICABLE FOR DIALYSIS PATIENTS. RAD, CHEST, 2 [id number] 16:56:00Reason for Exam:->I25.10Reason for Exam:-> I25.5Reason for Exam:->[id number] REPORT History: Coronary artery disease, ischemic cardiomyopathy, hypertension Comparison: 08/31/2005 Findings: The lungs are clear. No pleural effusions or pneumothorax. The heart shadow is mildly enlarged. Sternotomy wires are present. The thoracic aorta is mildly calcified. Degenerative and hypertrophic changes are present in the spine. There are degenerative changes in the acromioclavicular joints. Impression: No evidence of acute cardiopulmonary disease. Signed: Darryl Abreueport Verified Date/Time: 11/01/2018 16:56:03 Reading Location: [facility] Radiology Reading Room - XR CHEST 2 [id number] 13:39:00 [facility] 1960 Age/S:58 /M [address] [facility] Unit#:[id number] Loc: [place] [address] Phys: Pako Sheth III, MD Dis Date: PHONE #: [phone] Status: REG CLI FAX #: [phone] Exam Date: 10/31/2018 Reason: WELL ADULT EXAM EXAMS: CPT CODE: [id number] XR CHEST 2 V 40633 HISTORY: Well adult exam. COMPARISON: October 01, 2016. AP and lateral view of the chest: No acute infiltrates, effusion or congestion. Lung scarring. Cardiomegaly. DJD of the dorsal spine. IMPRESSION: No acute infiltrates, effusion or congestion. at 1339 Reported and signed by: Peter Smart M.D. CC: Pako Sheth III, MD Technologist: Elke Davis RT(R)(CT) Trnscrpt Data: 10/31/2018 (8904) t.[email or web address] Orig Print D/T: S: 10/31/2018 (1507) PAGE 1 Signed Report ECHO COMPLETE (ECHOCARDIOGRAM) [place] [address] Patient Name : MARITZA MIGUEL MR #: [id number] : 1960 Age/Sex: 57/M Adm Physician : JOSE SHIPLEY MD Admit Date : 08/30/17 Location : MED/SURG Room/Bed : [facility] REPORT: Cardiology Report DATE OF STUDY: August 30, 2017 ECHOCARDIOGRAM M-MODE: Dila lorena left atrium, dilated left ventricle. Borderline left ventricular hypertr ophy. Severely diminished left ventricular contractility. Normal mitral aor tic valves. No pericardial effusion. SECTOR SCAN: Dilated left atrium, di lated left ventricle. Severely diminished left ventricular contractility. E stimated ejection fraction 15% to 20%. There is borderline left ventricular hypertrophy. Mitral aortic and tricuspid valves are grossly normal. No louise cardial effusion. CARDIAC DOPPLER STUDY WITH COLOR: Trace mitral tricuspid regurgitation. CONCLUSIONS: 1. Borderline left ventricular hypertrophy with dilated left ventricle with severely diminished left ventricular contra ctility. Estimated ejection fraction 15% to 20%. 2. Trace mitral regurgita tion with dilated left atrium. 3. Trace tricuspid regurgitation. Job#: [id number] GH Si gnature Date Dictated By: JOSE SHIPLEY MD Transcribed By: SMEDS on 08/31/17 <Electronically signed by JOSE SHIPLEY MD><<Signature on File>> 09/02/17 0918 COPY TO: CHEST SINGLE (PORTABLE) [place] [address] Patient Name: MARITZA MIGUEL MR #: [id number] : 1960 Age/Sex: 57/M Req #: [id number] Adm Physician: JOSE SHIPLEY MD Ordered by: MARY HOU MD Report #: [id number] Location: MED/SURG Room/Bed: [facility] Procedure: [id number] DX/APOLINAR ST SINGLE (PORTABLE) Exam Date: 08/30/17 Exam Time: 1328 REPORT STATUS: Signed PROCEDURE: CHEST SINGLE (PORTABLE) COMPARI SON: 09/10/2010. INDICATIONS: CHEST PAIN, SOB FINDINGS: The lung s are well-inflated. No focal consolidation, pleural effusion, or pneumothora x. Postsurgical changes of the mediastinum with borderline enlargement of the cardiac silhouette. No overt pulmonary edema. No acute osseous abnorma lity. CONCLUSION: Borderline cardiomegaly without vascular decompensa tion. Dictated by: Darryl Alexander M.D. on 08/30/2017 at 13:51 Electr onically approved by: Darryl Alexander M.D. on 08/30/2017 at 13:51 Di ctated By: DARRYL ALEXANDER MD 1351 COPY TO: MARY HOU
[2019-01-06 07:45] VITALS: BP 110/73
== END | disposition home or self-care (01) ==
LOC: OR 05:32
PROVIDERS: ATTEND Internal Medicine Gastroenterology
DX: K29.00 Acute gastritis without bleeding (principal); K29.50 Unspecified chronic gastritis without bleeding; K44.9 Diaphragmatic hernia without obstruction or gangrene; K57.30 Diverticulosis of large intestine without perforation or abscess without bleeding; K64.8 Other hemorrhoids; Z71.3 Dietary counseling and surveillance; E66.9 Obesity, unspecified; G47.33 Obstructive sleep apnea (adult) (pediatric); I25.810 Atherosclerosis of coronary artery bypass graft(s) without angina pectoris; I10 Essential (primary) hypertension; I25.2 Old myocardial infarction; Z88.6 Allergy status to analgesic agent; Z01.810 Encounter for preprocedural cardiovascular examination; Z01.812 Encounter for preprocedural laboratory examination; Z79.82 Long term (current) use of aspirin; Z79.02 Long term (current) use of antithrombotics/antiplatelets; Z68.35 Body mass index [BMI] 35.0-35.9, adult; Z95.0 Presence of cardiac pacemaker; Z95.1 Presence of aortocoronary bypass graft
CPT/HCPCS: 36415; 43239; 45378; 85025; 93005; J2001; J2250

== ENCOUNTER → 2019-02-02 | Day surgery (SDC) | payer OTHER ==
[~2019-02-02] MED LIST changes: -FENTANYL CITRATE/PF 100MCG/2 ML INJ ONE; -LIDOCAINE HCL 2% LOCAL INJ 5 ML SDV VIAL INJ ONE
--- OUTSIDE RECORDS SUMMARY | 2019-02-02 06:29 | XMS REPORT | Clinical Summary ---
Author Author RAFAT [facility] CenterSchooner Information TechnologyHCA Florida [facility] Address Unknown Phone Unavailable Care Team Providers Care Test Driver Name Role Phone Jacob Gutiérrez PCP Allergies [...] Neo Stephens MD Athscl heart disease of [place] cor art w oth ang pctrs (HCC) (Primary Dx); Essential hypertension, malignant 12/06/2018 Orders Only Randall Lang MD 11/25/2018 Anesthesia Event Carlos Haywood MD AICD GENERATOR & LEADS - INSERTION W/ GENERAL ANESTHESIA (SING/DUAL/MULT) 11/25/2018 Surgery Carlos Haywood MD 11/25/2018 Hospital Cardiology - Encounter 11/26/2018 11/25/2018 Travel 11/25/2018 Orders Only General Internal Medicine Jacob Gutiérrez Atherosclerosis of [place] coronary artery of [place] heart without angina pectoris (Primary Dx); Ischemic cardiomyopathy; Essential hypertension, malignant 11/08/2018 Orders Only Neo Davison MD Atherosclerosis of [place] coronary artery without angina pectoris, unspecified whether [place] or transplanted heart (Primary Dx); Ischemic cardiomyopathy; Essential hypertension, malignant 11/01/2018 Orders Only Neo Davison MD Coronary artery disease involving [place] coronary artery of [place] heart without angina pectoris; Cardiomyopathy, unspecified type (HCC); Essential hypertension 11/01/2018 Hospital Encounter Neo Stephens MD Coronary artery disease involving [place] coronary artery of [place] heart without angina pectoris (Primary Dx); Cardiomyopathy, unspecified type (HCC); Essential hypertension; Atherosclerosis of [place] coronary artery without angina pectoris, unspecified whether [place] or transplanted heart; Ischemic cardiomyopathy; Essential hypertension, malignant 11/01/2018 Outside Orders Sammy Quintero MD L CATH & CORONARY ANGIOS 02/10/2018 Surgery Sammy Quintero MD 02/10/2018 Hospital Encounter after 02/01/2018 Social History Date Tobacco Use Types Packs/Day [...] Manufactur er 08/22/2020 6935M - 62CM / [id number] / Rv Lead 6935m - 62 Cm Right: Heart [employer] Implanted: Qty: 1 on 11/25/2018 by Carlos Haywood MD 09/20/2020 5076 - 45 CM / [id number] / Ra Lead 5076 - 45cm Right: Heart [employer] Implanted: Qty: 1 on 11/25/2018 by Carlos Haywood MD 06/30/2020 4298 - 78 CM / [id number] / Lv Lead 4298 - 78 Cm Heart [employer]TRON[employer] Implanted: Qty: 1 on 11/25/2018 by Carlos Haywood MD 03/26/2020 [id number] / [id number] / Claria Mri Quad Bowling Ball Molder-D Surescan Left: Chest [employer] Implanted: Qty: 1 on 11/25/2018 by Carlos Siu MD Procedures Comments Procedure Name Priority Date/Time Associated Diagnosis ARRYTHMIA IMPLANT REPORT 12/22/2018 - SCAN 2:22 PM CDT RHYTHM STRIP - SCAN 12/12/2018 10:41 AM CDT BASIC METABOLIC PANEL (7) Routine 12/06/2018 Athscl heart disease of 10:52 AM CDT [place] cor art w oth ang pctrs (HCC) Essential hypertension, malignant B-TYPE NATRIURETIC FACTOR Routine 12/06/2018 Athscl heart disease of (BNP) 10:52 AM CDT [place] cor art w oth ang pctrs (HCC) [...] ms QTC Calculatio n(Bazett) 497 ms P [place] 85 degrees R [place] -67 degrees T [place] -58 degrees Normal sinus rhythm Left axis [...] METABOLIC PANEL (7) Routine 11/08/2018 Atherosclerosis of [place] 2:58 PM TRACK INSPECTING SUPERVISOR coronary artery of [place] heart without angina pectoris Ischemic cardiomyopathy Essential hypertension, malignant B-TYPE NATRIURETIC FACTOR Routine 11/08/2018 Atherosclerosis of [place] (BNP) 2:58 PM TRACK INSPECTING SUPERVISOR coronary artery of [place] heart without angina pectoris Ischemic cardiomyopathy Essential hypertension, malignant B-TYPE NATRIURETIC FACTOR Routine 11/01/2018 Atherosclerosis of [place] (BNP) 4:51 PM TRACK INSPECTING SUPERVISOR coronary artery without angina pectoris, unspecified whether [place] or transplanted heart Ischemic cardiomyopathy Essential hypertension, malignant BASIC METABOLIC PANEL (7) Routine 11/01/2018 Atherosclerosis of [place] 4:51 PM TRACK INSPECTING SUPERVISOR coronary artery without angina pectoris, unspecified whether [place] or transplanted heart Ischemic cardiomyopathy Essential hypertension, malignant XR CHEST 2 VIEWS Routine 11/01/2018 Coronary artery disease 4:44 PM TRACK INSPECTING SUPERVISOR involving [place] coronary artery of [place] heart without angina pectoris Cardiomyopathy, unspecified type (HCC) Essential hypertension VASCULAR DIAGRAM -SCAN 05/20/2018 10:50 AM CDT CARDIAC CATH REPORT - 02/14/2018 SCAN 8:40 AM CDT REPORT OF PROCEDURE - 02/11/2018 ENDOSCOPY SCAN 12:30 PM CDT VASCULAR DIAGRAM -SCAN 02/11/2018 12:30 PM CDT L CATH & CORONARY ANGIOS 02/10/2018 Coronary artery disease 7:35 AM CDT involving [place] coronary artery of [place] heart without angina pectoris Acute angina (HCC) Case Notes (2) CASE POP6 l cath poss after 02/01/2018 Results * ARRYTHMIA IMPLANT REPORT - SCAN [...] BNP 267 (H) 0 - 100 pg/mL [facility] Specimen Blood Performing Organization Address City/[facility]/Zipcode Phone Number [facility] [address] [place] [address] [facility] * Basic Metabolic Panel (12/06/2018 10:52 AM CDT) Only the most recent of 4 results within the time period is included. Sodium 139 136 - 145 meq/L [facility] Potassium 4.4Comment: Specimen slightly 3.5 - 5.1 meq/L [facility] Chloride 107 98 - 107 meq/L [facility] CO2 26 22 - 29 meq/L [facility] BUN 8 7 - 21 mg/dL [facility] Creatinine 0.86Comment: Specimen slightly 0.57 - 1.25 mg/dL [facility] Glucose 94 70 - 105 mg/dL [facility] Calcium 10.0 8.4 - 10.2 mg/dL [facility] EGFR 91Comment: ESTIMATED GFR IS mL/min/1.73 sq m [facility] NOT ACCURATE CREATININE [facility] CLEARANCE IN PREDICTING GLOMERULAR FILTRATION RATE. ESTIMATED GFR IS NOT APPLICABLE FOR DIALYSIS PATIENTS. Specimen Blood Performing Organization Address City/State/Zipcode Phone Number [facility] [address] [place] [address] [facility] * EKG-SCANNED (11/29/2018 1:12 PM CDT) Only the most recent of 2 results within the time period is included. Narrative Performed At * CARDIAC CATH REPORT - SCAN (11/29/2018 1:12 PM CDT) Narrative Performed At * TRANSFUSION SERVICE REPORT - SCAN (11/26/2018 5:51 PM CDT) Narrative Performed At * CBC (Hemogram only) (11/26/2018 4:25 AM CDT) WBC 8.0 3.5 - 10.5 K/L [facility] RBC 5.42 4.63 - 6.08 M/L [facility] Hemoglobin 15.0 13.7 - 17.5 GM/DL [facility] Hematocrit 47.4 40.1 - 51.0 % [facility] MCV 87.5 79.0 - 92.2 fL [facility] MCH 27.7 25.7 - 32.2 pg [facility] MCHC 31.6 (L) 32.3 - 36.5 GM/DL [facility] RDW 14.2 11.6 - 14.4 % [facility] Platelets 220 150 - 450 K/CU MM [facility] MPV 10.7 9.4 - 12.4 fL [facility] nRBC 0 0 - 0 /100 WBC [facility] Specimen Blood Performing Organization Address City/State/Zipcode Phone Number [address] [address] [phone] [place] [address] * Electrolytes (11/26/2018 4:25 AM CDT) Sodium 138 136 - 145 meq/L [facility] Potassium 4.4 3.5 - 5.1 meq/L [facility] Chloride 107 98 - 107 meq/L [facility] CO2 23 22 - 29 meq/L [facility] Specimen Blood Performing Organization Address City/[facility]/Zipcode Phone Number [address] [address] [facility] * XR chest 1 view portable [...] pneumothorax. Signed: Tera Grimes MD Report Verified Date/Time:11/25/2018 19:23:22 Reading Location: [facility] C013 Consult Reading Room Procedure Note [...] Report Verified Date/Time: 11/25/2018 19:23:22 Reading Location: [facility] C013 Consult Reading Room Performing Organization Address City/State/Zipcode Phone Number [facility] * ECG 12 lead (11/25/2018 9:55 AM CDT) Specimen Narrative Performed At Ventricular Rate 81 BPM [facility] MUSE Atrial Rate 81 BPM P-R Interval 184 ms QRS Duration 156 ms Q-T Interval 428 ms QTC Calculation(Bazett) 497 ms P [place] 85 degrees R [place] -67 degrees T [place] -58 degrees Normal sinus rhythm Left axis [...] 428 ms QTC Calculation(Bazett) 497 ms P [place] 85 degrees R [place] -67 degrees T [place] -58 degrees Normal sinus rhythm Left axis [...] on 11/26/2018 5:05:09 AM Performing Organization Address City/[facility]/Zipcode Phone Number MUSE * Type and screen, automated (11/25/2018 9:35 AM CDT) ABO/RH AUTOMATED (BEAKER) O POSITIVE [facility] Ab Scrn NEGATIVE [facility] Specimen Blood Performing Organization Address City/[facility]/Zipcode Phone Number [facility] [address] [place] [address] [facility] * CBC with platelet count + automated diff (11/25/2018 9:35 AM CDT) WBC 6.4 3.5 - 10.5 K/L [facility] RBC 5.09 4.63 - 6.08 M/L [facility] Hemoglobin 13.9 13.7 - 17.5 GM/DL [facility] Hematocrit 44.5 40.1 - 51.0 % [facility] MCV 87.4 79.0 - 92.2 fL [facility] MCH 27.3 25.7 - 32.2 pg [facility] MCHC 31.2 (L) 32.3 - 36.5 GM/DL [facility] RDW 14.1 11.6 - 14.4 % [facility] Platelets 223 150 - 450 K/CU MM [facility] MPV 10.4 9.4 - 12.4 fL [facility] nRBC 0 0 - 0 /100 WBC [facility] % Neutros 54 % [facility] % Lymphs 31 % [facility] % Monos 9 % [facility] % Eos 5 % [facility] % Baso 1 % [facility] # Neutros 3.45 1.78 - 5.38 K/L [facility] # Lymphs 2.00 1.32 - 3.57 K/L [facility] # Monos 0.54 0.30 - 0.82 K/L [facility] # Eos 0.33 0.04 - 0.54 K/L [facility] # Baso 0.04 0.01 - 0.08 K/L [facility] Immature 0 0 - 1 % [facility] Granulocytes-Relative [facility] Specimen Blood Performing Organization Address City/State/Zipcode Phone Number [facility] [address] [place] [address] [facility]ENTER * Prothrombin time/INR (11/25/2018 9:35 AM CDT) Protime 14.6 11.7 - 14.7 seconds [facility] INR 1.1 <=5.9 [facility] Specimen Blood Narrative Performed At RECOMMENDED COUMADIN/WARFARIN INR THERAPY RANGES [facility] STANDARD DOSE: 2.0 - 3.0 Includes: PROPHYLAXIS for venous thrombosis, [facility] systemic embolization; TREATMENT for venous thrombosis and/or pulmonary embolus. HIGH RISK: Target INR is 2.5-3.5 for patients with mechanical heart valves. Within 24 hours, if on Coumadin Performing Organization Address City/State/Zipcode Phone Number [facility] [address] [place] [address] [facility] * Magnesium (11/25/2018 9:35 AM CDT) Magnesium 2.2 1.6 - 2.6 mg/dL [facility] Specimen Blood Performing Organization Address [facility] Phone Number [facility] [address] [place], [place] [id number] [facility] * XR Chest 2 Views (11/01/2018 4:44 PM TRACK INSPECTING SUPERVISOR) Specimen Narrative Performed At FINAL REPORT [facility] History: Coronary artery disease, ischemic cardiomyopathy, hypertension [...] MD Report Verified Date/Time:11/01/2018 16:56:03 Reading Location: [facility] Radiology Reading Room Procedure Note Interface, External Ris In - 11/01/2018 4:58 PM TRACK INSPECTING SUPERVISOR FINAL REPORT History: Coronary artery disease, ischemic [...] Report Verified Date/Time: 11/01/2018 16:56:03 Reading Location: [facility] Radiology Reading Room Performing Organization Address [facility]/Zipcode Phone Number [facility] * VASCULAR DIAGRAM -SCAN (05/20/2018 10:50 AM CDT) Only the most recent of 2 results within the time period is included. Narrative Performed At * CARDIAC CATH REPORT - SCAN (02/14/2018 8:40 AM CDT) Narrative Performed At after 02/01/2018 Insurance Payer Benefit Subscriber ID Type Phone Address Plan / Group OLEKSANDR LEGGETT xxxxxxxxxxx SUPERIOR Advance Directives For more information, please contact: [facility] [address] [place] [address] Date Inactivated Comments Code Status Date Activated 11/26/2018 2:02 PM Full Code 11/25/2018 5:15 PM This code status was determined by: Patient 11/25/2018 5:15 PM Full Code 11/25/2018 8:33 AM This code status was determined by: Patient 02/10/2018 3:46 PM Full Code 02/10/2018 6:06 AM This code status was determined by: Patient
--- NOTE | 2019-02-02 07:10 | NUR ---
SPIRITUAL CARE - Pre-Surgery Assessment: Pt in bed. Pt's at bedside. Pt reported supportive attention from family and friends. Intervention: I provided pastoral presence, hospitality, and sympathetic listening. I acquainted pt with availability of quality assurance calibrator while hospitalized. Outcome: Pt expressed appreciation for visit. No need for follow up indicated at this time. [facility] Spiritual Care Department O: [phone] Pager: [phone] ([phone] number calling from)
[2019-02-02 08:25] VITALS: BP 100/66
== END | disposition home or self-care (01) ==
LOC: OR 06:18
PROVIDERS: ATTEND Internal Medicine Gastroenterology
DX: Z12.11 Encounter for screening for malignant neoplasm of colon (principal); D12.3 Benign neoplasm of transverse colon; K64.8 Other hemorrhoids; R12 Heartburn; Z71.3 Dietary counseling and surveillance; I48.91 Unspecified atrial fibrillation; I10 Essential (primary) hypertension; E66.9 Obesity, unspecified; I25.810 Atherosclerosis of coronary artery bypass graft(s) without angina pectoris; I25.2 Old myocardial infarction; Z88.6 Allergy status to analgesic agent; Z79.82 Long term (current) use of aspirin; Z79.02 Long term (current) use of antithrombotics/antiplatelets; Z68.36 Body mass index [BMI] 36.0-36.9, adult; Z95.1 Presence of aortocoronary bypass graft; Z95.0 Presence of cardiac pacemaker
CPT/HCPCS: 45385; 88305; J2250

== ENCOUNTER 2020-09-16 20:50 | Inpatient (IN) | payer MEDICARE, OTHER ==
[~2020-09-16] VITALS: Ht 167.6 cm; Wt 104.5 kg
[~2020-09-16 20:50] MED LIST changes: -MIDAZOLAM HCL 2 MG/2 ML VIAL ONE; -PROPOFOL IV EMULSION 10 MG/ML 50 ML VIAL ONE
[2020-09-16] MEDS ORDERED: ASPIRIN 81 MG CHEW TAB PO ONE ×2 (21:00→22:45)
[2020-09-16] MEDS ORDERED: AMIODARONE HCL 150 MG/100 ML BAG IV STA (21:14)
[2020-09-16] MEDS ORDERED: AMIODARONE HCL 900 MG in DEXTROSE 5% 500ML 500 ML IV STA (21:14)
[2020-09-16 21:20] LABS: BASOPHILS # (AUTO) 0.1 (0.0-0.1); BASOPHILS % 0.6 % (0.0-1.0); EOSINOPHILS # (AUTO) 0.1 (0.0-0.4); EOSINOPHILS % 0.5 % (0.0-6.0); HEMATOCRIT 48.4 % (38.2-49.6); HEMOGLOBIN 15.5 g/dL (14.0-18.0); LYMPHOCYTES # (AUTO) 0.9 (1.0-3.2); LYMPHOCYTES % 8.5 % (18.0-39.1); MEAN CORPUSCULAR HEMOGLOBIN 27.4 pg (28-32); MEAN CORPUSCULAR VOLUME 85.7 fL (81-99); MONOCYTES # (AUTO) 0.8 (0.2-0.8); MONOCYTES % 7.2 % (4.4-11.3); NEUTROPHILS # (AUTO) 8.6 (2.1-6.9); NEUTROPHILS % 82.7 % (38.7-80.0); PLATELET COUNT 206 x10e3/uL (140-360); RED BLOOD COUNT 5.65 x10e6/uL (4.3-5.7); RED CELL DISTRIBUTION WIDTH 14.9 % (11.7-14.4)
[2020-09-16] MEDS ORDERED: PIPER-TAZ 3.375 GM 50 ML IV STA (21:35)
[2020-09-16 21:36] LABS: ALANINE AMINOTRANSFERASE 12 IU/L (0-55); ALBUMIN 3.3 g/dL (3.5-5.0); ALBUMIN/GLOBULIN RATIO 0.9 (0.8-2.0); ALKALINE PHOSPHATASE 58 IU/L (40-150); ANION GAP 13.6 mmol/L (8-16); BLOOD UREA NITROGEN 9 mg/dL (7-26); BUN/CREATININE RATIO 9 (6-25); CALCIUM 8.4 mg/dL (8.4-10.2); CARBON DIOXIDE 25 mmol/L (22-29); CHLORIDE 98 mmol/L (98-107); CREATININE, SERUM 1.01 mg/dL (0.72-1.25); EST GLOMERULAR FILTRATION RATE > 60 ML/MIN (60-); GLUCOSE 135 mg/dL (74-118); POTASSIUM 4.6 mmol/L (3.5-5.1); SODIUM 132 mmol/L (136-145)
[2020-09-16] MEDS ORDERED: ACETAMINOPHEN 325 MG TAB PO STA (21:36)
[2020-09-16] MEDS ORDERED: ENOXAPARIN SODIUM INJ 100 MG/ML SYR SC STA (21:41)
[2020-09-16 21:49] LABS: CREATINE KINASE 94 IU/L (30-200)
[2020-09-16] MEDS ORDERED: AMIODARONE 900MG 500 ML IV ONE (21:57)
[2020-09-16] MEDS ORDERED: AMIODARONE HCL 150MG 100 ML ONE (21:57)
[2020-09-16] MEDS ORDERED: DEXAMETHASONE SOD PHOS 10 MG/1 ML VIAL IV STA (22:35)
[2020-09-16] MEDS: AZITHROMYCIN 500MG/NS 250 ML 250 ML IV SCH (23:30)
[2020-09-17 06:08] LABS: BASOPHILS % 0.4 % (0.0-1.0); HEMATOCRIT 49.5 % (38.2-49.6); HEMOGLOBIN 15.7 g/dL (14.0-18.0); LYMPHOCYTES # (AUTO) 0.5 (1.0-3.2); LYMPHOCYTES % 5.9 % (18.0-39.1); MEAN CORPUSCULAR HEMOGLOBIN 27.2 pg (28-32); MEAN CORPUSCULAR HGB CONC 31.7 g/dL (31-35); MEAN CORPUSCULAR VOLUME 85.8 fL (81-99); MONOCYTES # (AUTO) 0.2 (0.2-0.8); MONOCYTES % 2.2 % (4.4-11.3); NEUTROPHILS # (AUTO) 7.6 (2.1-6.9); NEUTROPHILS % 91.3 % (38.7-80.0); PLATELET COUNT 191 x10e3/uL (140-360); RED BLOOD COUNT 5.77 x10e6/uL (4.3-5.7); RED CELL DISTRIBUTION WIDTH 14.9 % (11.7-14.4)
[2020-09-17 06:40] LABS: CREATINE KINASE MB 2.8 ng/mL (0-5.0)
[2020-09-17 07:03] LABS: LYMPHOCYTES % (MANUAL) 2 % (19-48); MONOCYTES % (MANUAL) 3 % (3.4-9.0); NEUTROPHILS % (MANUAL) 93 % (40-74)
[2020-09-17 07:04] LABS: LARGE PLATELETS FEW; PLATELET ESTIMATE ADEQUATE; PLATELET MORPHOLOGY COMMENT RARE EDTA CLUMPING; RBC MORPHOLOGY COMMENT NORMAL
[2020-09-17 07:19] LABS: ALANINE AMINOTRANSFERASE 12 IU/L (0-55); ALBUMIN 3.2 g/dL (3.5-5.0); ALBUMIN/GLOBULIN RATIO 0.8 (0.8-2.0); ALKALINE PHOSPHATASE 56 IU/L (40-150); ANION GAP 15.4 mmol/L (8-16); BLOOD UREA NITROGEN 12 mg/dL (7-26); BUN/CREATININE RATIO 12 (6-25); CALCIUM 8.6 mg/dL (8.4-10.2); CARBON DIOXIDE 23 mmol/L (22-29); CHLORIDE 99 mmol/L (98-107); CREATININE, SERUM 0.97 mg/dL (0.72-1.25); EST GLOMERULAR FILTRATION RATE > 60 ML/MIN (60-); GLUCOSE 182 mg/dL (74-118); POTASSIUM 4.4 mmol/L (3.5-5.1); SODIUM 133 mmol/L (136-145)
[2020-09-17] MEDS ORDERED: ONDANSETRON HCL INJ 2MG/ML 2ML 2 MG/ML VIAL IV PRN (09:30)
[2020-09-17] MEDS ORDERED: ACETAMINOPHEN 325 MG TAB PO PRN (09:30)
[2020-09-17] MEDS: AZITHROMYCIN 500MG/NS 250 ML 250 ML IV SCH (09:47)
[2020-09-17] MEDS: CEFTRIAXONE SOD 1 GM/NS 50 ML 50 ML IV SCH (09:52)
[2020-09-17] MEDS: ASPIRIN 81 MG CHEW TAB PO SCH (10:24)
[2020-09-17] MEDS ORDERED: REMDESIVIR 200MG/NS 100ML 200 MG in SODIUM CHLORIDE 0.9% 100 ML 100 ML IV ONE (17:00)
[2020-09-17] MEDS ORDERED: CARVEDILOL 12.5 MG TAB PO SCH (17:00)
[2020-09-17] MEDS: ENOXAPARIN SOD INJ 40 MG/0.4 ML SYR SC SCH (17:06)
[2020-09-17] MEDS ORDERED: ETOMIDATE 2 MG/ML 10 ML INJ IV ONE (17:45)
[2020-09-17] MEDS ORDERED: SUCCINYLCHOLINE CHLORIDE 20 MG/ML 10ML VIAL ONE (17:45)
[2020-09-17] MEDS: RANOLAZINE 500 MG TABSR PO SCH (18:45)
[2020-09-17] MEDS ORDERED: MAGNESIUM SULFATE 2GM/50ML 50 ML IV ONE ×2 (19:30→19:36)
[2020-09-17] MEDS ORDERED: CARVEDILOL 12.5 MG TAB PO ONE (19:30)
[2020-09-17 19:38] LABS: CREATINE KINASE MB 2.2 ng/mL (0-5.0)
[2020-09-17] MEDS ORDERED: LIDOCAINE HCL 2% 100 MG/5 ML IV ONE ×2 (19:48→19:54)
[2020-09-17] MEDS ORDERED: LIDOCAINE HCL/D5W 4 MG/ML 2000 MG/500 ML BAG IV ONE (19:54)
[2020-09-17] MEDS ORDERED: LIDOCAINE 2GM/D5W 500ML 500 ML IV ONE (19:55)
[2020-09-17] MEDS ORDERED: AMIODARONE HCL 150MG 200 ML ONE (20:21)
[2020-09-17] MEDS ORDERED: ZOLPIDEM TARTRATE 5 MG TAB PO PRN (21:00)
[2020-09-17] MEDS: MIDAZOLAM HCL 50 MG in SODIUM CHLORIDE 0.9% 100 ML 90 ML IV PRN (21:34)
[2020-09-17] MEDS: FENTANYL CITRATE INJ 2,000 MCG in SODIUM CHLORIDE 0.9% 250ML 210 ML IV PRN (21:34)
[2020-09-17] MEDS ORDERED: AMIODARONE 900MG 500 ML IV ONE (21:45)
[2020-09-17] MEDS ORDERED: ESMOLOL HCL 2500MG/250 ML 250 ML ONE (21:58)
[2020-09-17] MEDS: ESMOLOL HCL 2500MG/250 ML 250 ML IV SCH (22:45)
[2020-09-18] VITALS (7 sets, daily range): BP systolic 116–147; BP diastolic 78–106
[2020-09-18] MEDS: FENTANYL CITRATE INJ 2,000 MCG in SODIUM CHLORIDE 0.9% 250ML 210 ML IV PRN ×2 (00:47→03:15)
[2020-09-18] MEDS ORDERED: SODIUM CHLORIDE 0.9% 1000ML 1,000 ML IV ONE (02:00)
[2020-09-18] MEDS ORDERED: SODIUM CHLORIDE 0.9% 250ML 250 ML ONE (02:10)
[2020-09-18] MEDS ORDERED: MAGNESIUM SULFATE 2GM/50ML 50 ML IV ONE ×2 (02:45→02:47)
[2020-09-18] MEDS ORDERED: ACETAMINOPHEN 650 MG SUPP PR ONE (02:56)
[2020-09-18] MEDS ORDERED: ONDANSETRON HCL INJ 2MG/ML 2ML 2 MG/ML VIAL IV STA (02:57)
[2020-09-18] MEDS ORDERED: KETOROLAC TROMETHAMINE 30 MG/ML VIAL IV STA (03:00)
[2020-09-18] MEDS ORDERED: ACETAMINOPHEN 650 MG SUPP PR PRN ×2 (03:00)
[2020-09-18] MEDS ORDERED: LIDOCAINE 2GM/D5W 500ML 500 ML IV SCH (03:10)
[2020-09-18] MEDS: ESMOLOL HCL 2500MG/250 ML 250 ML IV SCH (03:13)
[2020-09-18] MEDS: MIDAZOLAM HCL 50 MG in SODIUM CHLORIDE 0.9% 100 ML 90 ML IV PRN (03:14)
[2020-09-18 03:43] LABS: BASOPHILS % 0.2 % (0.0-1.0); CALCIUM IONIZED 1.1 mmol/L (1.09-1.30); HEMATOCRIT 46.5 % (38.2-49.6); HEMOGLOBIN 14.6 g/dL (14.0-18.0); LYMPHOCYTES # (AUTO) 0.8 (1.0-3.2); LYMPHOCYTES % 5.9 % (18.0-39.1); MEAN CORPUSCULAR HEMOGLOBIN 27.1 pg (28-32); MEAN CORPUSCULAR HGB CONC 31.4 g/dL (31-35); MEAN CORPUSCULAR VOLUME 86.3 fL (81-99); MONOCYTES # (AUTO) 0.7 (0.2-0.8); MONOCYTES % 5.4 % (4.4-11.3); NEUTROPHILS # (AUTO) 11.5 (2.1-6.9); PLATELET COUNT 196 x10e3/uL (140-360); RED BLOOD COUNT 5.39 x10e6/uL (4.3-5.7)
[2020-09-18] MEDS ORDERED: SODIUM CHLORIDE 0.9% 500ML 500 ML ONE ×2 (03:47→09:41)
[2020-09-18] MEDS: AZITHROMYCIN 500MG/NS 250 ML 250 ML IV SCH ×3 (03:48→08:55)
[2020-09-18 03:56] LABS: INR 1.74; PROTHROMBIN TIME 21.7 seconds (11.9-14.5)
[2020-09-18 03:57] LABS: PARTIAL THROMBOPLASTIN TIME 35.6 seconds (23.8-35.5)
[2020-09-18 04:01] LABS: MAGNESIUM 3.4 MG/DL (1.3-2.1)
[2020-09-18 04:03] LABS: ALBUMIN 2.9 g/dL (3.5-5.0); ALBUMIN/GLOBULIN RATIO 0.8 (0.8-2.0); ANION GAP 16.2 mmol/L (8-16); CALCIUM 7.9 mg/dL (8.4-10.2); CREATININE, SERUM 2.08 mg/dL (0.72-1.25); POTASSIUM 5.2 mmol/L (3.5-5.1)
[2020-09-18] MEDS ORDERED: NOREPINEPHRINE 8 MG/D5W 250 ML 250 ML ONE ×2 (04:15→04:20)
[2020-09-18] MEDS: NOREPINEPHRINE INJ 4MG/4ML 8 MG in DEXTROSE 5% 250ML 250 ML IV PRN ×3 (04:18→04:39)
[2020-09-18] MEDS: DEXAMETHASONE SOD PHOS 10 MG/1 ML VIAL IV SCH (06:53)
[2020-09-18] MEDS ORDERED: AMIODARONE HCL 900 MG in DEXTROSE 5% 500ML 500 ML IV SCH (07:30)
[2020-09-18] MEDS: RANOLAZINE 500 MG TABSR PO SCH ×2 (07:41→08:23)
[2020-09-18] MEDS: ASPIRIN 81 MG CHEW TAB PO SCH (07:41)
[2020-09-18] MEDS: CARVEDILOL 12.5 MG TAB PO SCH ×2 (07:42→08:24)
[2020-09-18] MEDS ORDERED: LIPITOR20 MG PO (08:36)
[2020-09-18] MEDS ORDERED: CLOPIDOGREL BISULFATE 75 MG TAB PO SCH (09:00)
[2020-09-18] MEDS ORDERED: AZITHROMYCIN 500MG/NS 250 ML 250 ML ONE (09:13)
[2020-09-18] MEDS: CEFTRIAXONE SOD 1 GM/NS 50 ML 50 ML IV SCH (09:17)
[2020-09-18 09:40] LABS: CLARITY,URINE CLEAR (CLEAR); COLOR,URINE YELLOW (YELLOW); LEUKOCYTE ESTERASE ,URINE NEGATIVE (NEGATIVE); NITRITE,URINE NEGATIVE (NEGATIVE); PROTEIN,URINE DIPSTICK 2+ (NEGATIVE)
[2020-09-18 09:41] LABS: KETONES,URINE 1+ (NEGATIVE); URINE UROBILINOGEN 0.2 mg/dL (0.2 - 1)
[2020-09-18 10:19] LABS: AMORPHOUS SEDIMENT,URINE FEW (FEW); BACTERIA,URINE FEW /HPF; RBC,URINE 0-5 /HPF (0-5)
[2020-09-18] MEDS ORDERED: MIDAZOLAM HCL 5MG/ML 10ML VIAL 100 ML IV PRN (10:45)
[2020-09-18] MEDS ORDERED: NOREPINEPHRINE 8 MG/D5W 250 ML 250 ML IV PRN (10:45)
[2020-09-18 11:32] LABS: BASOPHILS # (AUTO) 0.1 (0.0-0.1); BASOPHILS % 0.3 % (0.0-1.0); HEMATOCRIT 48.3 % (38.2-49.6); HEMOGLOBIN 15.2 g/dL (14.0-18.0); LYMPHOCYTES # (AUTO) 0.8 (1.0-3.2); LYMPHOCYTES % 4.1 % (18.0-39.1); MEAN CORPUSCULAR HEMOGLOBIN 27.4 pg (28-32); MEAN CORPUSCULAR HGB CONC 31.5 g/dL (31-35); MONOCYTES # (AUTO) 0.7 (0.2-0.8); MONOCYTES % 3.6 % (4.4-11.3); NEUTROPHILS # (AUTO) 17.1 (2.1-6.9); NEUTROPHILS % 91.1 % (38.7-80.0); PLATELET COUNT 178 x10e3/uL (140-360); RED BLOOD COUNT 5.55 x10e6/uL (4.3-5.7); RED CELL DISTRIBUTION WIDTH 15.1 % (11.7-14.4)
[2020-09-18 11:52] LABS: ALBUMIN 2.7 g/dL (3.5-5.0); ALBUMIN/GLOBULIN RATIO 0.7 (0.8-2.0); ANION GAP 18.4 mmol/L (8-16); CALCIUM 7.5 mg/dL (8.4-10.2); CREATININE, SERUM 2.63 mg/dL (0.72-1.25); POTASSIUM 5.4 mmol/L (3.5-5.1)
[2020-09-18] MEDS ORDERED: FUROSEMIDE INJ 10 MG/ML 4 ML VIAL IV ONE (12:30)
[2020-09-18] MEDS ORDERED: REMDESIVIR 100MG/NS 100ML 100 MG in SODIUM CHLORIDE 0.9% 100 ML 100 ML IV SCH (14:00)
[2020-09-18 15:22] LABS: ANION GAP 17.2 mmol/L (8-16); CREATININE, SERUM 2.66 mg/dL (0.72-1.25); POTASSIUM 5.2 mmol/L (3.5-5.1)
[2020-09-18] MEDS: ENOXAPARIN SOD INJ 40 MG/0.4 ML SYR SC SCH (16:19)
[2020-09-18] MEDS ORDERED: SOD POLYSTYRENE SULFONATE SUSP 15 GM/60 ML BTL NG ONE (17:30)
[2020-09-18] MEDS: SODIUM CHLORIDE 0.9% 1000ML 1,000 ML IV SCH (19:00)
[2020-09-18] MEDS ORDERED: ATORVASTATIN 20 MG TAB PO SCH (21:00)
[2020-09-18] MEDS ORDERED: LIDOCAINE 2GM/D5W 500ML 500 ML IV PRN (23:30)
[2020-09-18] MEDS ORDERED: AMIODARONE HCL 900 MG in DEXTROSE 5% 500ML 500 ML IV PRN (23:30)
[2020-09-19] VITALS (8 sets, daily range): BP systolic 78–150; BP diastolic 58–97
[2020-09-19] MEDS ORDERED: ACETAMINOPHEN 325 MG TAB ONE (01:40)
[2020-09-19 05:30] LABS: BASOPHILS % 0.2 % (0.0-1.0); HEMATOCRIT 46.2 % (38.2-49.6); HEMOGLOBIN 14.8 g/dL (14.0-18.0); LYMPHOCYTES # (AUTO) 0.9 (1.0-3.2); MEAN CORPUSCULAR HEMOGLOBIN 27.1 pg (28-32); MEAN CORPUSCULAR VOLUME 84.5 fL (81-99); MONOCYTES # (AUTO) 0.9 (0.2-0.8); MONOCYTES % 5.2 % (4.4-11.3); NEUTROPHILS # (AUTO) 15.2 (2.1-6.9); NEUTROPHILS % 88.9 % (38.7-80.0); PLATELET COUNT 182 x10e3/uL (140-360); RED BLOOD COUNT 5.47 x10e6/uL (4.3-5.7); RED CELL DISTRIBUTION WIDTH 14.8 % (11.7-14.4)
[2020-09-19] MEDS ORDERED: DEXAMETHASONE SOD PHOS INJ 4 MG/ML VIAL ONE (05:55)
[2020-09-19 06:00] LABS: ALBUMIN 2.6 g/dL (3.5-5.0); ALBUMIN/GLOBULIN RATIO 0.7 (0.8-2.0); CALCIUM 7.7 mg/dL (8.4-10.2); CREATININE, SERUM 2.29 mg/dL (0.72-1.25); MAGNESIUM 2.5 MG/DL (1.3-2.1); PHOSPHORUS 3.9 MG/DL (2.3-4.7)
[2020-09-19] MEDS: DEXAMETHASONE SOD PHOS 10 MG/1 ML VIAL IV SCH (06:30)
[2020-09-19 06:31] LABS: CALCIUM IONIZED 1.1 mmol/L (1.09-1.30)
[2020-09-19] MEDS: SODIUM CHLORIDE 0.9% 1000ML 1,000 ML IV SCH (06:50)
[2020-09-19 08:11] LABS: ABG HCO3 19 mmol/L (22-26); ABG PCO2 35 mmHg (35-45); ABG PH 7.34 (7.35-7.45); ABG PO2 117 mmHg (80-105); ABG TCO2 20
[2020-09-19] MEDS ORDERED: AMIODARONE 900MG 500 ML IV ONE (09:53)
[2020-09-19] MEDS ORDERED: SODIUM CHLORIDE 0.9% 250ML 250 ML ONE (10:11)
[2020-09-19] MEDS ORDERED: EPINEPHRINE HCL 1:1000 1ML 4 MG in DEXTROSE 5% 250ML 250 ML IV PRN (12:45)
[2020-09-19] MEDS ORDERED: EPINEPHRINE HCL SYRINGE ONE ×2 (17:08→19:35)
[2020-09-19] MEDS ORDERED: SODIUM CHLORIDE FLUSH 10 ML SYR ONE (17:08)
[2020-09-19] MEDS ORDERED: AMIODARONE HCL INJ 150MG/3ML ONE (19:35)
[2020-09-19] MEDS ORDERED: DOPAmine/D5W 1.6 MG/ML 400 MG/250ML PREMIX IV ONE (19:35)
[2020-09-19] MEDS ORDERED: ATORVASTATIN 40 MG TAB PO SCH (21:00)
== END 2020-09-19 18:30 | disposition expired | DRG 208 ==
LOC: ER 21:04 → ERHOLD 22:38 → UNDOADMIN 09-17 00:57 → ERHOLD 09-17 00:57 → ICU 09-18 16:15
PROVIDERS: ADMIT Internal Medicine; ATTEND Internal Medicine
PROC: 0BH17EZ Insertion of Endotracheal Airway into Trachea, Via Natural or Artificial Opening (ICD-10-PCS; principal; 2020-09-16)
PROC: 5A1945Z Respiratory Ventilation, 24-96 Consecutive Hours (ICD-10-PCS; 2020-09-16)
DX: U07.1 COVID-19 (principal); J12.9 Viral pneumonia, unspecified; I50.23 Acute on chronic systolic (congestive) heart failure; J96.00 Acute respiratory failure, unspecified whether with hypoxia or hypercapnia; I47.2 Ventricular tachycardia; N17.9 Acute kidney failure, unspecified; E87.2 Acidosis; R00.0 Tachycardia, unspecified; R57.0 Cardiogenic shock; I25.5 Ischemic cardiomyopathy
CPT/HCPCS: 31500; 36415; 36569; 36600; 51700; 71045; 74018; 80048; 80053; 81001; 82550; 82553; 82805; 83690; 83735; 83880; 83935; 84100; 84484; 85025; 85610; 85730; 87040; 87086; 92950; 93005; 93306; 94002; 94003; 99285; J0171; J0330; J0456; J0696; J1100; J1650; J1885; J1940; J2001; J2250; J2405; J2543; J3475; J7030; J7040; J7050; J7060; J7070; U0002